=== PATIENT | male | born 1980 | race Caucasian/White ===

== ENCOUNTER 2017-09-08 12:50 | Emergency (ER) | payer BC, OTHER ==
[~2017-09-08] VITALS: Ht 180.3 cm; Wt 101.6 kg
[2017-09-08] MEDS ORDERED: PARO20TA5 (13:04)
[2017-09-08] MEDS ORDERED: ALBU90AE (13:04)
[2017-09-08] MEDS ORDERED: RT-ALBUTEROL/IPRATROPIUM 3 ML (DUONEB) VIAL INH ONE (13:30)
[2017-09-08] MEDS ORDERED: diphenhydrAMINE 25 MG TAB (BENADRYL) PO ONE (14:15)
--- NOTE | 2017-09-08 14:53 | ED General ---
General Chief Complaint: General Problems/Pain Stated Complaint: ALLERGIC REACTION-NUMBNESS,SOB Nursing Triage Note: AMB TO ROOM WITH MALE PATIENT REPORTS THAT HE TOOK MUCINEX FOR COUGH AND CONGESTION AND 1 THIS AM FOR CONGESTION HE HAS HAD FOR A WEEK. ON ADMIT PATIENT REPORTS BEING NUMB AND TINGLING ALL OVER. WAS TEACH CLASS AT HS. N0 SOB Nursing Sepsis Screen: No Definite Risk History of Present Illness Date Seen by Provider: Sep 08, 2017 Time Seen by Provider: 13:00 Initial Comments 37-year-old male presents complaining of a possible allergic reaction to medication. He is ambulatory, no dyspnea, no rash and communicating without difficulty. He reports approximately one week ago being diagnosed with a sinus infection. He was prescribed prednisone which she finished 2 days ago. He was also given Augmentin to take one tablet twice daily. He reports he has only been taking the Augmentin every other day. Last evening he took Mucinex DM was unable to sleep. He took the Mucinex D again this morning, it has made him hyperactive. He did take his Augmentin this morning. He denies any caffeine use or illicit drug use today. He is mainly complaining of numbness and tingling in his extremities. He has not had any drug allergies in the past. He has history of OCD, which she takes Paxil for. He has no history of anxiety disorders. Timing/Duration: 1-3 Hours Severity: Mild Associated Systoms: Denies Symptoms, Other (tingling upper and lower extremities) Allergies and Home Medications Allergies Coded Allergies: No Known Drug Allergies (Unverified , 09/08/17) Home Medications Albuterol Sulfate 90 Mcg Aer.powMabelba, (Reported) Paroxetine HCl 20 Mg Tablet, (Reported) Constitutional: no symptoms reported, see HPI, other (anxious) Skin: see HPI, No lesions, No rash, other (face and neck are flushed, no rash noted) All Other Systems Reviewed Negative Unless Noted: Yes Past Oeopkrn-Kcmfih-Talbti Hx Patient Social History Alcohol Use: Occasionally Uses Recreational Drug Use: No Smoking Status: Never a Smoker Recent Foreign Travel: No Contact w/Someone Who Travel: No Recent Infectious Disease Expo: No Surgeries History of Surgeries: Yes (TEETH) Psychosocial History of Psychiatric Problem: Yes (OCD) Reviewed Nursing Assessment Reviewed/Agree w Nursing PMH: Yes Physical Exam Vital Signs Vital Sign - Last 12Hours 09/08/17 09/08/17 12:50 13:44 Temp 98.2 Pulse 90 Resp 18 B/P (MAP) 157/93 (114) Pulse Ox 98 O2 Delivery Room Air Capillary Refill : Less Than 3 Seconds General Appearance: No Apparent Distress, WD/WN Eyes: Bilateral Eye Normal Inspection, Bilateral Eye PERRL, Bilateral Eye EOMI HEENT: PERRL/EOMI, TMs Normal, Normal ENT Inspection, Pharynx Normal Neck: Full Range of Motion, Normal Inspection, Non Tender, Supple, Other (face and neck are flushed, no rash or hives noted) Respiratory: Chest Non Tender, Lungs Clear, No Accessory Muscle Use, No Respiratory Distress, Wheezing (bilateral) Cardiovascular: Regular Rate, Rhythm, No Edema, No Murmur, Normal Peripheral Pulses Gastrointestinal: Normal Bowel Sounds, Non Tender, Soft Back: Normal Inspection, No CVA Tenderness, No Vertebral Tenderness Extremity: Normal Capillary Refill, Normal Inspection, Other (normal sensation to light touch in upper and lower extremities. Full range of motion. No rashes or lesions noted) Neurologic/Psychiatric: Alert, Oriented x3, No Motor/Sensory Deficits, Normal Mood/Affect Skin: Normal Color Lymphatic: No Adenopathy Progress/Results/Core Measures Suspected Sepsis Recent Fever Within 48 Hours: No Infection Criteria Present: None New/Unexplained Altered Menta: No Sepsis Screen: No Definite Risk Sepsis Diagnosis: SIRS Temperature:98.2 Pulse: 90 Respiratory Rate: 18 Blood Pressure 157 /93 Mean: 114 Results/Orders My Orders Orders - SAHARA TIDWELL Albuterol/Ipra Inhalation Soln (Duoneb I (09/08/17 13:30) Svn Sm Volume Nebulizer Rt-Rfs (09/08/17 13:25) Diphenhydramine Tablet (Benadryl Tablet) (09/08/17 14:15) Medications Given in ED Current Medications Medications Dose Ordered Sig/Austin Route Start Time Stop Time Status Last Admin Dose Admin Albuterol/ Ipratropium 3 ml ONCE ONCE INH 09/08/17 13:30 09/08/17 13:31 DC 09/08/17 13:44 3 ML Diphenhydramine HCl 50 mg ONCE ONCE PO 09/08/17 14:15 09/08/17 14:16 DC 09/08/17 14:25 50 MG Vital Signs/I&O Vital Sign - Last 12Hours 09/08/17 09/08/17 09/08/17 12:50 13:44 15:04 Temp 98.2 Pulse 90 92 Resp 18 18 B/P (MAP) 157/93 (114) Pulse Ox 98 98 98 O2 Delivery Room Air Capillary Refill : Less Than 3 Seconds Blood Pressure Mean: 114 Progress Note : Time: 13:00 Progress Note Initial evaluation completed, recommended DuoNeb treatment for wheezing. Will reevaluate. 1340 patient continues to have mild flushing of his face, and no other skin changes noted. Patient is ambulatory with no dyspnea. He reports the numbness and tingling in the upper extremities are resolving, he still has mild symptoms in the lower extremities. Lung sounds are clear to auscultation bilaterally after the breathing treatment. Benadryl 25 mg by mouth. 1400 patient has drank approximately 16 ounces of water, he has been ambulatory to the bathroom with no further symptoms. 1430 discharge planning and return precautions reviewed with the patient, all questions answered. He will discontinue the Augmentin and Mucinex, follow-up with Jimmie Bolaños APRN as needed. Will continue to use Benadryl 25 mg every 8 hours as needed for symptoms. Departure Impression Impression: Primary Impression: Medication reaction Qualified Codes: T88.7XXA - Unspecified adverse effect of drug or medicament, initial encounter Additional Impression: Anxiety Disposition: 01 HOME, SELF-CARE Condition: Improved Departure-Patient Inst. Decision time for Depature: 14:50 Referrals: NO,LOCAL PHYSICIAN (PCP/Family) Primary Care Physician Patient Instructions: Adverse Drug Reactions, Adult (DC), Drug Allergy Add. Discharge Instructions: Bendaryl 25 mg every 8 hours. Continue to increase water intake. Activity as tolerated. Do not take any further Augmentin or Mucinex. Follow-up with your primary care provider in 2-3 days. Return to emergency department for rash, difficulty breathing, inability to swallow, or any other new problems. All discharge instructions reviewed with patient and/or family. Voiced understanding. Copy Copies To 1: SILVINO MASON MD, AMY ARNP Sep 08, 2017 14:53
[2017-09-08 15:04] VITALS: BP 137/92
--- OUTSIDE RECORDS SUMMARY | 2017-09-12 04:53 | XMS REPORT ---
Author Author LITA GREEN Organization [employer] Address Unknown Phone Unavailable Care Team Providers Care Machine Washer Name Role Phone LITA GREEN CP Unavailable Allergies No Known Allergies Problems Problem Type Condition ICD-9 Code Onset Dates Condition Status Problem Unspecified hypertrophic and atrophic condition of skin 701.9 Active Problem Other specified viral warts 078.19 Active Medications Medication Code System Code Instructions Start Date End Date Status Dosage Zithromax Z-Yannick [facility] [address]-19 250 MG Orally Once a day Apr 19, 2015 Apr 24, 2015 2 tablets on the first day, then 1 tablet daily for 4 days Results No Known Results Summary Purpose [employer] Submission
--- OUTSIDE RECORDS SUMMARY | 2017-09-12 04:53 | XMS REPORT ---
Author Author LITA GREEN Organization [employer] Address Unknown Phone Unavailable Care Team Providers Care Safety Patrol Officer Name Role Phone LITA GREEN CP Unavailable Allergies No Known Allergies Problems Problem Type Condition Code Onset Dates Condition Status Problem Unspecified hypertrophic and atrophic condition of skin 701.9 Active Problem Other specified viral warts 078.19 Active Medications Medication Code System Code Instructions Start Date End Date Status Dosage PredniSONE [facility] [address]-77 20 mg Orally Once a day December 16, 2015 December 21, 2015 2 tablets Zithromax Z-Yannick [facility] [address]-75 250 MG Orally Once a day December 16, 2015 December 21, 2015 2 tablets on the first day, then 1 tablet daily for 4 days Results No Known Results Summary Purpose [employer] Submission
--- OUTSIDE RECORDS SUMMARY | 2017-09-12 04:53 | XMS REPORT ---
Author Author LITA GREEN [facility] Address [address] [place] [address] Care Team Providers Care Rental Clerk Name Role Phone LITA GREEN Unavailable PROBLEMS Type Condition ICD9-CM Code CXL91-LQ Code Onset Dates Condition Status SNOMED Code Problem Anxiety F41.9 Active 40917954 Problem Other specified viral warts 078.19 Active 01262755 Problem Unspecified hypertrophic and atrophic condition of skin 701.9 Active 409865088 ALLERGIES No Information SOCIAL HISTORY Never Assessed PLAN OF CARE VITAL SIGNS MEDICATIONS Medication Instructions Dosage Frequency Start Date End Date Duration Status Zithromax Z-Yannick 250 MG Orally Once a day 2 tablets on the first day, then 1 tablet daily for 4 days 24h December, December, 5 day(s) Active RESULTS No Results PROCEDURES No Known procedures IMMUNIZATIONS No Known Immunizations MEDICAL (GENERAL) HISTORY Type Description Date Medical History OCD Surgical History [facility] Teeth Extraction 2016 Surgical History tonsillectomy and adenoidectomy Hospitalization History sinus infections and mono as a teenager
--- OUTSIDE RECORDS SUMMARY | 2017-09-12 04:53 | XMS REPORT ---
Author Author LITA GREEN [facility] [employer] Address Unknown Phone Unavailable Care Team Providers Care Back Hoe Machine Operator Name Role Phone LITA GREEN CP Unavailable Allergies, Adverse Reactions, Alerts Substance Reaction Event Type N.K.D.A. Info Not Available Non Drug Allergy Problems Problem Type Condition Code Onset Dates Condition Status Problem Unspecified hypertrophic and atrophic condition of skin 701.9 Active Assessment Anxiety F41.9 Active Problem Other specified viral warts 078.19 Active Medications Medication Code System Code Instructions Start Date End Date Status Dosage Raquel-D 24 Hour NDC 0 orally once a day one table Paroxetine HCl NDC 24919383249 20 MG Orally Once a day 1 tablet in the morning Procedures Procedure Coding System Code Date Office Visit, Est Pt., Level 3 CPT-4 94687 February 24, 2016 Vital Signs Date/Time: February 24, 2016 Cardiac Monitoring Heart Rate 77 bpm Weight 245.6 lbs Height 70 in Blood Pressure Diastolic 92 mmHg Blood Pressure Systolic 151 mmHg Results No Known Results Summary Purpose [employer] Submission
--- OUTSIDE RECORDS SUMMARY | 2017-09-12 04:53 | XMS REPORT ---
Author Author LITA GREEN [facility] Address [address] [place] [address] Care Team Providers Care Dough Scaler And Mixer Name Role Phone LITA GREEN Unavailable PROBLEMS Type Condition ICD9-CM Code FCY71-IL Code Onset Dates Condition Status SNOMED Code Problem Anxiety F41.9 Active 23714640 Problem Other specified viral warts 078.19 Active 97541443 Problem Unspecified hypertrophic and atrophic condition of skin 701.9 Active 280051923 ALLERGIES Unknown Allergies SOCIAL HISTORY No smoking Hx information available PLAN OF CARE VITAL SIGNS MEDICATIONS Medication Instructions Dosage Frequency Start Date End Date Duration Status Paroxetine HCl 20 Orally Once a day 1 tablet in the morning 24h 30 Active RESULTS No Results PROCEDURES No Known procedures IMMUNIZATIONS No Known Immunizations
--- OUTSIDE RECORDS SUMMARY | 2017-09-12 04:53 | XMS REPORT | Continuity of Care Document ---
Author Author [facility] Address Unknown Phone Unavailable Allergies There is no data. Medications There is no data. Problems Date Dx Coded Attending Type Code Diagnosis Diagnosed By 07/14/2008 477.9 RHINITIS ALLERGIC 07/14/2008 V58.69 MEDICATION HIGH RISK 07/14/2008 LITA GREEN APRN 477.9 RHINITIS ALLERGIC 07/14/2008 LITA GREEN APRN V58.69 MEDICATION HIGH RISK 07/14/2008 DARCY BRADLEY DO 477.9 RHINITIS ALLERGIC 07/14/2008 DARCY BRALDEY DO V58.69 MEDICATION HIGH RISK 03/27/2009 296.90 MOOD DISORDER 03/27/2009 LITA GREEN APRN 296.90 MOOD DISORDER 03/27/2009 DARCY BRADLEY DO 296.90 MOOD DISORDER 03/02/2012 078.19 WARTS, COMMON 03/02/2012 701.9 SKIN TAG 03/02/2012 LITA GREEN APRN 078.19 WARTS, COMMON 03/02/2012 LITA GREEN APRN 701.9 SKIN TAG 03/02/2012 DARCY BRADLEY DO 078.19 WARTS, COMMON 03/02/2012 DARCY BRADLEY DO 701.9 SKIN TAG Procedures Code [place] [address] THERAPUTIC INJ SQ/IM 12/08/2013 [id number] SOLUMEDROL INJ 12/08/2013 Results There is no data. Encounters ACCT No. Visit Date/Time Discharge Status Pt. Type Provider Facility Loc./Unit Complaint [id number] 12/08/2013 15:26:00 12/08/2013 23:59:59 [place] [id number] 04/19/2012 15:14:00 04/19/2012 23:59:59 CLS Outpatient [id number] 04/19/2012 15:14:00 04/19/2012 23:59:59 CLS Outpatient LITA GREEN APRN
--- OUTSIDE RECORDS SUMMARY | 2017-09-12 04:53 | XMS REPORT ---
Author Author LITA GREEN [facility] Address [address] [place] [address] Care Team Providers Care Roller Gold Leaf Name Role Phone LITA GREEN Unavailable PROBLEMS Type Condition ICD9-CM Code QLF91-DC Code Onset Dates Condition Status SNOMED Code Problem Other specified viral warts 078.19 Active 82774308 Problem Unspecified hypertrophic and atrophic condition of skin 701.9 Active 904048945 Assessment Anxiety F41.9 Apr, Active 42968184 ALLERGIES Unknown Allergies SOCIAL HISTORY No smoking Hx information available PLAN OF CARE VITAL SIGNS MEDICATIONS Unknown Medications RESULTS Name Result Date Reference Range CBC 2016-05-11 WBC 7.6 3.4-10.8 RBC 4.79 4.14-5.80 Hemoglobin 15.4 12.6-17.7 Hematocrit 43.2 37.5-51.0 MCV 90 79-97 MCH 32.2 26.6-33.0 MCHC 35.6 31.5-35.7 RDW 13.6 12.3-15.4 Platelets 316 150-379 Neutrophils 57 Lymphs 32 Monocytes 9 Eos 1 Basos 1 Immature Cells Neutrophils (Absolute) 4.4 1.4-7.0 Lymphs (Absolute) 2.4 0.7-3.1 Monocytes(Absolute) 0.7 0.1-0.9 Eos (Absolute) 0.1 0.0-0.4 Baso (Absolute) 0.1 0.0-0.2 Immature Granulocytes 0 Immature Grans (Abs) 0.0 0.0-0.1 NRBC Hematology Comments: LIPID PANEL 2016-05-11 Cholesterol, Total 218 100-199 Triglycerides 89 0-149 HDL Cholesterol 59 >39 VLDL Cholesterol Ortega 18 5-40 LDL Cholesterol Calc 141 0-99 Comment: CMP 2016-05-11 Glucose, Serum 88 65-99 BUN 9 6-20 Creatinine, Serum 0.95 0.76-1.27 eGFR If NonAfricn Am 104 >59 eGFR If Africn Am 120 >59 BUN/Creatinine Ratio 9 8-19 Sodium, Serum 140 134-144 Potassium, Serum 4.1 3.5-5.2 Chloride, Serum 98 97-108 Carbon Dioxide, Total 25 18-29 Calcium, Serum 10.0 8.7-10.2 Protein, Total, Serum 7.4 6.0-8.5 Albumin, Serum 4.8 3.5-5.5 Globulin, Total 2.6 1.5-4.5 A/G Ratio 1.8 1.1-2.5 Bilirubin, Total 0.7 0.0-1.2 Alkaline Phosphatase, S 77 39-117 AST (SGOT) 18 0-40 ALT (SGPT) 23 0-44 PROCEDURES Procedure Date Ordered Related Diagnosis Body Site LIPID PANEL May 11, 2016 COMPREHEN METABOLIC PANEL May 11, 2016 VENIPUNCT, ROUTINE* May 11, 2016 IMMUNIZATIONS No Known Immunizations
== END 2017-09-08 15:03 | disposition home or self-care (01) ==
LOC: EDUNIT# 12:50 → ER 12:53
DX: R20.0 Anesthesia of skin (principal); R06.02 Shortness of breath; T88.7XXA Unspecified adverse effect of drug or medicament, initial encounter; F41.9 Anxiety disorder, unspecified; F42.9 Obsessive-compulsive disorder, unspecified
CPT/HCPCS: 94640; 99283

== ENCOUNTER 2021-08-11 09:43 | Outpatient (CLI) | payer BC ==
[~2021-08-11] VITALS: Ht 177 cm; Wt 95.5 kg
[~2021-08-11 09:43] MED LIST: ALBU90AE; PARO20TA5
[2021-08-11] MEDS ORDERED: diphenhydrAMINE 50 MG/ML INJ (BENADRYL) IV PRN (10:00)
[2021-08-11] MEDS ORDERED: ONDANSETRON 4 MG/2 ML (SDV) Z0FRAN IV PRN (10:00)
[2021-08-11] MEDS ORDERED: EPINEPHrine INJECTION 1 MG/ML AMP IM PRN (10:00)
[2021-08-11] MEDS ORDERED: BAMLANIVIMAB 700 MG/ETESEVIMAB 1,400 MG IN NS IV ONE ×3 (10:00)
[2021-08-11] MEDS ORDERED: ACETAMINOPHEN 500 MG TAB (TYLENOL) PO PRN (10:00)
[2021-08-11 11:32] VITALS: BP 134/92
== END 2021-08-11 11:32 | disposition home or self-care (01) ==
LOC: INFUSION 09:43
PROVIDERS: ATTEND Physician Assistant
DX: U07.1 COVID-19 (principal)